=== PATIENT | female | born 1965 | race Caucasian/White ===

== ENCOUNTER 2022-10-25 08:36 | Day surgery (SDC) | payer OTHER ==
[~2022-10-25] VITALS: Ht 154.9 cm; Wt 82.6 kg
[2022-10-25] MEDS ORDERED: fentaNYL citrate 0.05 MG/ML VIAL ONE (10:19)
[2022-10-25] MEDS ORDERED: LIDOCAINE 2% 100 MG/5 ML UJET TP ONE (10:20)
[2022-10-25] MEDS ORDERED: fentaNYL citrate 0.05 MG/ML VIAL IVP ONE (12:40)
== END 2022-10-25 11:51 | disposition home or self-care (01) ==
LOC: MDS 08:36 → MMU 08:37 → MDS 11:51
PROVIDERS: ATTEND Internal Medicine Gastroenterology
DX: Z12.11 Encounter for screening for malignant neoplasm of colon (principal); K76.0 Fatty (change of) liver, not elsewhere classified; Z20.822 Contact with and (suspected) exposure to COVID-19
CPT/HCPCS: 45378; 87426; J3010